=== PATIENT | female | born 1965 | race Caucasian/White ===

== ENCOUNTER 2018-09-20 20:45 | Emergency (ER) | payer BC ==
--- NOTE | 2018-09-20 21:24 | RAD ---
EXAM: CHEST ONE VIEW: 09/20/18 HISTORY: Chest pain. FINDINGS: Heart size is normal. The lungs are clear. No pneumonia, edema, pleural effusion. IMPRESSION: No acute intrathoracic disease. POS: [facility]
[2018-09-20] MEDS ORDERED: Meclizine HCl 25 MG TAB ONE (21:31)
[2018-09-20] MEDS ORDERED: Ondansetron ODT 8 MG TAB ONE (21:34)
[2018-09-20 21:36] LABS: #Basophils 0.1 thou/uL (0.0-0.2); #Eosinphils 0.2 thou/uL (0.0-0.7); #Lymphocytes 2.7 thou/uL (1.20-3.40); %Basophils 1.1 % (0.0-1.0); %Eosinophils 1.6 % (0.0-10.0); %Lymphocytes 22.4 % (21.0-51.0); %Monocytes 8.4 % (0.0-10.0); %Neutrophils 66.6 % (42.0-75.0); Hemoglobin 10.6 g/dL (12.0-16.0); Mean Corpuscular HGB CONC 32.2 g/dL (32.0-36.0); Mean Corpuscular Hemoglobin 24.2 pg (27.0-31.0); Mean Corpuscular Volume 75.2 fL (78.0-98.0); Mean Platelet Volume 7.6 fL (7.4-10.4); Platelet Count 320 thou/uL (130-400); RBC Distribution Width 14.8 % (11.5-14.5); Red Blood Cell (RBC) Count 4.39 mill/uL (4.20-5.40)
[2018-09-20 21:57] LABS: ALT (SGPT) 12 U/L (8-55); AST (SGOT) 17 U/L (5-34); Alkaline Phosphatase 64 U/L (40-150); Anion Gap 16 mmol/L (10-20); BUN (Urea Nitrogen) 18 mg/dL (9.8-20.1); Bilirubin, Total 0.2 mg/dL (0.2-1.2); CK (CPK) 69 U/L (29-168); Calc. Creatinine Clearance 0 mL/min (70-130); Calcium 8.9 mg/dL (7.8-10.44); Carbon Dioxide 21 mmol/L (22-29); Chloride 105 mmol/L (98-107); Estimated GFR-MDRD 80; Globulin 2.9 g/dL (2.4-3.5); Glucose 138 mg/dL (70-105); Potassium 3.3 mmol/L (3.5-5.1); Protein, Total 6.9 g/dL (6.0-8.3); Sodium 139 mmol/L (136-145)
[2018-09-20] MEDS ORDERED: Potassium Chloride 20 MEQ TAB ONE (22:35)
[2018-09-21] MEDS ORDERED: Ondansetron ODT 8 MG TAB ONE (00:21)
[2018-09-21] MEDS ORDERED: Lorazepam 2 MG/ML VIAL ONE (00:53)
--- NOTE | 2018-09-21 16:32 | CT ---
PRELIMINARY REPORT/[facility]/EMERGENTY AFTER-HOURS PROCEDURE CT Head Without Contrast EXAM DATE/TIME: 09/21/2018 12:26 AM CLINICAL HISTORY: 52 years old, female; Signs and symptoms; Dizziness; Patient HX: Er 12; F52 presents to ed for dizzin ess. PT state she had a dizzy spell this morning while driving lasting 1 min, and had resolved. PT st ates her dizziness returned tonight. reports PT found PT on the floor in the kitchen. PT montserrat es loc, denies injury, says she just sat down when she felt dizzy. PT C/O nausea. Dizziness described as room spinning. PT denies SOB, cp, headache. PT denies having recent illness. TECHNIQUE: Axial computed tomography images of the head/brain without contrast. COMPARISON: No relevant prior studies available. FINDINGS: Brain: No intracrainal hemorrhage. No midline shift. The brain parenchyma appears normal for age. Ventricles: No ventriculomegaly. Bones/joints: Normal. No acute fracture. Sinuses: Normal as visualized. No acute sinusitis. Mastoid air cells: Normal as visualized. No mastoid effusion. Soft tissues: Normal. IMPRESSION: No acute intracranial abnormality. Thank you for allowing us to participate in the care of your patient. Dictated and Authenticated by: Gus Sinclair MD 09/21/2018 12:38 AM Central Time ([place] & [place]) FINAL REPORT CT HEAD WITHOUT CONTRAST: No acute finding. I am in agreement with the preliminary report. POS: [facility]
--- NOTE | 2018-09-21 16:34 | CT ---
PRELIMINARY REPORT/[facility]/EMERGENTY AFTER-HOURS PROCEDURE CT Angiography Head With Contrast EXAM DATE/TIME: 09/21/2018 12:28 AM CLINICAL HISTORY: 52 years old, female; Signs and symptoms; Dizziness and giddiness; Patient HX: Er 12; F52 presents to ed for dizziness. PT state she had a dizzy spell this morning while driving lasting 1 min, and had r esolved. PT states her dizziness returned tonight. reports PT found PT on the floor in the kitchen. PT denies loc, denies injury, says she just sat down when she felt dizzy. PT C/O naus ea. Dizziness described as room spinning. PT denies SOB, cp, headache. PT denies having recent illnes s. TECHNIQUE: Axial computed tomographic angiography images of the head with intravenous contrast using CT angiogra phy protocol. Coronal and sagittal reformatted images were created and reviewed. MIP reconstructed im ages were created and reviewed. COMPARISON: No relevant prior studies available. FINDINGS: Right internal carotid artery: Unremarkable. Intracranial segment is patent with no significant stenosis. No aneurysm. Right anterior cerebral artery: Unremarkable. No occlusion or significant stenosis. No aneurysm. Right middle cerebral artery: Unremarkable. No occlusion or significant stenosis. No aneurysm. Right posterior cerebral artery: Unremarkable. No occlusion or significant stenosis. No aneurysm. Right vertebral artery: Unremarkable. No occlusion or significant stenosis. No aneurysm. Left internal carotid artery: Unremarkable. Intracranial segment is patent with no significant stenos is. No aneurysm. Left anterior cerebral artery: Unremarkable. No occlusion or significant stenosis. No aneurysm. Left middle cerebral artery: Unremarkable. No occlusion or significant stenosis. No aneurysm. Left posterior cerebral artery: Unremarkable. No occlusion or significant stenosis. No aneurysm. Left vertebral artery: Unremarkable. No occlusion or significant stenosis. No aneurysm. Basilar artery: Unremarkable. No occlusion or significant stenosis. No aneurysm. IMPRESSION: No acute findings. Thank you for allowing us to participate in the care of your patient. Dictated and Authenticated by: Gus Sinclair MD 09/21/2018 1:02 AM Central Time ([place] & [place]) FINAL REPORT CT ANGIOGRAPHY OF CEREBRAL CIRCULATION WITH CONTRAST: Multiple axial tomograms obtained with multiplanar reconstruction and 3D post processing. Intracranial internal carotid arteries, cerebral arteries, and basilar arteries appear unremarkable. There is no evidence of foal stenosis or occlusion. I am in agreement with the preliminary report. POS: [facility]
== END 2018-09-21 02:07 | disposition home or self-care (01) ==
LOC: ERS 20:45
DX: H81.399 Other peripheral vertigo, unspecified ear (principal); E03.9 Hypothyroidism, unspecified; E78.5 Hyperlipidemia, unspecified; I10 Essential (primary) hypertension
CPT/HCPCS: 36415; 70450; 70496; 71045; 80053; 82550; 84443; 84484; 85025; 93005; 96361; 96374; J2060

== ENCOUNTER 2019-09-13 23:21 | Emergency (ER) | payer BC ==
--- NOTE | 2019-09-13 23:57 | RAD ---
XR Chest 1 View Portable HISTORY: Syncope. COMPARISON: 09/20/2018 exam. FINDINGS: Heart size and mediastinum are within normal limits. The lungs are clear of infiltrates. Th ere are no significant bony findings. IMPRESSION: No active intrathoracic disease.
[2019-09-14 00:07] LABS: #Basophils 0.1 thou/uL (0.0-0.2); #Eosinphils 0.3 thou/uL (0.0-0.7); #Lymphocytes 1.6 thou/uL (1.20-3.40); #Neutrophils 8.2 thou/uL (1.40-6.50); %Basophils 0.5 % (0.0-1.0); %Eosinophils 2.6 % (0.0-10.0); %Lymphocytes 14.4 % (21.0-51.0); %Monocytes 9.3 % (0.0-10.0); %Neutrophils 73.2 % (42.0-75.0); Hemoglobin 14.7 g/dL (12.0-16.0); Mean Corpuscular HGB CONC 34.6 g/dL (32.0-36.0); Mean Corpuscular Hemoglobin 30.5 pg (27.0-31.0); Mean Corpuscular Volume 88.2 fL (78.0-98.0); Mean Platelet Volume 8.1 fL (7.4-10.4); Platelet Count 261 thou/uL (130-400); RBC Distribution Width 11.8 % (11.5-14.5); Red Blood Cell (RBC) Count 4.81 mill/uL (4.20-5.40); White Blood Cell (WBC) Count 11.2 thou/uL (4.8-10.8)
[2019-09-14 00:48] LABS: ALT (SGPT) 14 U/L (8-55); AST (SGOT) 18 U/L (5-34); Albumin 4.2 g/dL (3.5-5.0); Alkaline Phosphatase 75 U/L (40-110); Anion Gap 16 mmol/L (10-20); BUN (Urea Nitrogen) 15 mg/dL (9.8-20.1); Bilirubin, Total 0.4 mg/dL (0.2-1.2); Calc. Creatinine Clearance 0 mL/min (70-130); Calcium 9.2 mg/dL (7.8-10.44); Carbon Dioxide 23 mmol/L (22-29); Chloride 106 mmol/L (98-107); Estimated GFR-MDRD 79; Globulin 2.5 g/dL (2.4-3.5); Glucose 125 mg/dL (70-105); Potassium 4.3 mmol/L (3.5-5.1); Protein, Total 6.7 g/dL (6.0-8.3); Sodium 141 mmol/L (136-145)
--- NOTE | 2019-09-14 07:52 | CT ---
PRELIMINARY REPORT/[facility]/EMERGENCY AFTER HOURS PROCEDURE: EXAM: CT BRAIN WO CON HISTORY: F53 presents to ED for syncope. Pt reports syncopal episode tonight x1, now feeling like she might pass out again. Pt was sitting on couch talking when suddenly she passed out, reports about 15 seconds till pt came to. Had normal vitals and blood sugar at home. 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 Has had full workups done with all negative findings. Saw Dr. Mullins, no findings, thought w as sudden bp drop so changed medication. Pt denies any pain, headache, chest pain, back pain, N/V/D, or any other complaints. COMPARISON: None FINDINGS: Elam-white matter differentiation is preserved. No focal parenchymal hypodensity to suggest acute ischemia or edema. No intracranial hemorrhage. No hydrocephalus. Paranasal sinuses and mastoids are clear. Contents of the orbits are symmetric across the midline. No calvarial fracture or overlying scalp swelling. IMPRESSION: No acute intracranial process. ELECTRONICALLY SIGNED BY: Mason Prado MD Sep 14, 2019 2:09:02 AM [employer]W OPERATOR This report is intended for review by the ordering physician only, in accordance of law. If you recei ve this report in error, please call [facility] at [phone]. FINAL REPORT HEAD CT WITHOUT CONTRAST: HISTORY: Syncope. COMPARISON: 09/21/2018. FINDINGS: No parenchymal hemorrhage or extra-axial hematoma. No midline shift. Brain volume is age-appropriate. No hydrocephalus. Intact calvarium. Adequate aeration of sinuses and mastoid air cells. IMPRESSION: This report is in agreement with the initial report by [facility]. No acute intracranial proces s. POS: [facility]
== END 2019-09-14 03:11 | disposition home or self-care (01) ==
LOC: ERS 23:21
DX: R55 Syncope and collapse (principal); E03.9 Hypothyroidism, unspecified; E78.5 Hyperlipidemia, unspecified; I10 Essential (primary) hypertension; Z79.899 Other long term (current) drug therapy
CPT/HCPCS: 70450; 71045; 80053; 84443; 84484; 85025; 93005

== ENCOUNTER 2019-11-05 10:38 | Outpatient (CLI) | payer BC ==
[2019-11-05] MEDS ORDERED: Iopamidol-370 76% 500 ML 1 ML ONE (13:36)
--- NOTE | 2019-11-06 14:26 | CT ---
CT CORONARY ARTERY CALCIUM SCORING WITHOUT IV CONTRAST CTA CORONARY ARTERIES WITH IV CONTRAST AND 3D POSTPROCESSING AND EVALUATION ON INDEPENDENT 3D WORKSTA TION: 11/06/09 HISTORY: Carotid artery stenosis, syncope and vertigo. FINDINGS: No calcified coronary artery plaques are seen. The total coronary artery calcium score is 0. There is good flow without significant stenosis involving the left main, LAD, diagonals, LCX, RCA and posterior descending artery. The left ventricular functional measurements are as follows: EF: 67% End diastolic volume: 99 mL End systolic volume: 33 mL Stroke volume: 60 mL per minute Cardiac output: 3.2 liters per minute Myocardial mass: 97 grams Left ventricular wall motion is normal. The visualized lung sullivan are clear. The ascending thoracic aorta is ectatic measuring 4.[address] eural or pericardial effusions are seen. The visualized lung sullivan are clear. There are degenerative changes in the spine. IMPRESSION: 1. Total coronary artery calcium score is 0. 2. No significant stenosis in the major coronary arteries. POS: [facility]
== END 2019-11-05 10:39 | disposition home or self-care (01) ==
LOC: BICCT 10:38
PROVIDERS: ATTEND Internal Medicine Cardiovascular Disease
DX: I65.23 Occlusion and stenosis of bilateral carotid arteries (principal)
CPT/HCPCS: 75574; Q9967

== ENCOUNTER 2022-05-15 08:03 | Outpatient (CLI) | payer BC | END 2022-05-15 08:04 | disposition home or self-care (01) | LOC: BICMAMMO 08:03 | PROVIDERS: ATTEND Obstetrics & Gynecology | DX: Z12.31 Encounter for screening mammogram for malignant neoplasm of breast (principal); Z80.3 Family history of malignant neoplasm of breast | CPT/HCPCS: 77063; 77067 ==

== ENCOUNTER 2022-06-19 08:57 | Outpatient (CLI) | payer BC ==
[2022-06-19] MEDS ORDERED: Magnevist 469MG/ML 20 ML VIAL ONE (14:06)
== END 2022-06-19 08:58 | disposition home or self-care (01) ==
LOC: MRI 08:57
PROVIDERS: ATTEND Family Medicine
DX: R55 Syncope and collapse (principal); R43.9 Unspecified disturbances of smell and taste; R93.0 Abnormal findings on diagnostic imaging of skull and head, not elsewhere classified; J34.89 Other specified disorders of nose and nasal sinuses
CPT/HCPCS: 70553; A9579

== ENCOUNTER 2023-06-11 08:26 | Outpatient (CLI) | payer BC | END 2023-06-11 08:27 | disposition home or self-care (01) | LOC: BICMAMMO 08:26 | PROVIDERS: ATTEND Family Medicine | DX: Z12.31 Encounter for screening mammogram for malignant neoplasm of breast (principal); Z80.3 Family history of malignant neoplasm of breast | CPT/HCPCS: 77063; 77067 ==

== ENCOUNTER 2023-08-06 14:51 | Outpatient (CLI) | payer BC | END 2023-08-06 14:52 | disposition home or self-care (01) | LOC: BICULT 14:51 | PROVIDERS: ATTEND Urology | DX: D49.512 Neoplasm of unspecified behavior of left kidney (principal) | CPT/HCPCS: 76770 ==

== ENCOUNTER 2024-07-07 10:52 | Outpatient (CLI) | payer BC | END 2024-07-07 10:53 | disposition home or self-care (01) | LOC: BICMAMMO 10:52 | PROVIDERS: ATTEND Family Medicine | DX: Z12.31 Encounter for screening mammogram for malignant neoplasm of breast (principal); Z80.3 Family history of malignant neoplasm of breast | CPT/HCPCS: 77063; 77067 ==

== ENCOUNTER 2025-07-15 08:06 | Outpatient (CLI) | payer BC | END 2025-07-15 08:07 | disposition home or self-care (01) | LOC: BICMAMMO 08:06 | PROVIDERS: ATTEND Family Medicine | DX: Z12.31 Encounter for screening mammogram for malignant neoplasm of breast (principal); Z80.3 Family history of malignant neoplasm of breast | CPT/HCPCS: 77063; 77067 ==